=== PATIENT | male | born 1960 | race African-American/Black ===

== ENCOUNTER 2020-02-20 15:24 | Inpatient (IN) | payer OTHER ==
--- NOTE | 2020-02-20 15:36 | BHS.RME ---
Substance Use & Tx History - Substance Use History Heroin Substance amount: 2-3 bags Frequency of use: Daily Substance route: Inhalation (ex: sniffing or snorting) Date of Last Use: 02/20/20 Cocaine- Powder Substance amount: $20 Frequency of use: Daily Substance route: Inhalation (ex: sniffing or snorting) Date of Last Use: 02/20/20 Physical/Psych/Mental Status - Behavior General Behavior: Increased activity (restlessness, agitation) Eye Contact: Normal - Cooperativeness Cooperativeness: Cooperative - Thinking Thought Processes: Tight, Logical, Goal Directed Thought content: Future oriented - Physical Health Problems Is patient presently having any pain?: No Does patient presently have any injuries (include location): No Does patient currently have a fever: No Is patient : No COWS - Scale Resting Pulse: 0= [place] 80 or Below Sweatin= Chills/Flushing Restless Observation: 1= Difficult to Sit Still Pupil Size: 1= Pupils >than Normal Bone or Joint Aches: 0= None Runny Nose/ Eye Tearin= Nasal Congestion GI Upset > 30mins: 0= None Tremor Observation: 1= Tremor [place], Not Seen Yawning Observation: 0= None Anxiety or Irritability: 4=Extreme Anxiety Goose Flesh Skin: 3=Piloerection COWS Score: 12
--- NOTE | 2020-02-20 16:39 | HP ---
COWS - Scale Resting Pulse: 0= [place] 80 or Below Sweatin= Chills/Flushing Restless Observation: 1= Difficult to Sit Still Pupil Size: 1= Pupils >than Normal Bone or Joint Aches: 2= Severe Diffuse Aches Runny Nose/ Eye Tearin= Nasal Congestion GI Upset > 30mins: 1= Stomach Cramp Tremor Observation: 2= Slight Tremor Visible Yawning Observation: 0= None Anxiety or Irritability: 4=Extreme Anxiety Goose Flesh Skin: 3=Piloerection COWS Score: 16 CIWA Score - Admission Criteria [facility] Guidelines: Admission for Medically Managed Detox: Requires at least one of the followin. CIWA greater than 12 2. Seizures within the past 24 hours 3. Delirium tremens within the past 24 hours 4. Hallucinations within the past 24 hours 5. Acute intervention needed for co occurring medical disorder 6. Acute intervention needed for co occurring psychiatric disorder 7. Severe withdrawal that cannot be handled at a lower level of care (continued vomiting, continued diarrhea, abnormal vital signs) requiring intravenous medication and/or fluids 8. Admission ROS [facility] Chief Complaint: Seeking admission to detox from heroin Allergies/Adverse Reactions: Allergies Allergy/AdvReac Type Severity Reaction Status Date / Time No Known Allergies Allergy Verified 02/20/20 18:46 History of Present Illness: 59 years old male with 25 years of heroin dependence is seeking admission to detox. Patient's last admission to [facility] was for the period 12/04/2010- 01/01/2011. This is his first detoxification since 2010 and patient reports that he tried to stop by himself but was not successful. He reports 4-5 bags of heroin daily. He has medical history GERD, hemorrhoids, low back pain, bilateral hands arthritis and psych. history of paranoid schizo-affective, bipolar disorder, personality disorder and depression. He reports suicide attempt in 1987, 1988 when he got three 25 years to life sentences, he denies suicidal ideation at this time. He is unemployed on SSI, lives with mother and denies any pending legal issues. He reports blackouts and denies any history of overdose. Exam Limitations: No Limitations - Ebola screening Have you traveled outside of the country in the last 21 days: No Have you had contact with anyone from an Ebola affected area: No Have you been sick,other than usual withdrawal symptoms: No Do you have a fever: No - Review of Systems Constitutional: Chills, Loss of Appetite, Malaise, Night Sweats, Changes in sleep EENT: reports: Nose Congestion Respiratory: reports: No Symptoms reported Cardiac: reports: No Symptoms Reported GI: reports: Nausea, Poor Appetite, Poor Fluid Intake, Abdominal cramping : reports: No Symptoms Reported Musculoskeletal: reports: Joint Pain, Muscle Pain Integumentary: reports: Dryness, Flushing Endocrine: reports: No Symptoms Reported Hematology: reports: No Symptoms Reported Psychiatric: reports: Mood/Affect Appropiate, Orientated x3, Anxious Other Systems: Reviewed and Negative Patient History - Patient Medical History Hx Anemia: No Hx Asthma: No Hx Chronic Obstructive Pulmonary Disease (COPD): No Hx Cancer: No Hx Cardiac Disorders: No Hx Congestive Heart Failure: No Hx Hypertension: No Hx Hypercholesterolemia: No HX Cerebrovascular Accident: No Hx Seizures: No Hx Dementia: No Hx Diabetes: No Hx Gastrointestinal Disorders: Yes (GERD, Hemorrhoids) Hx Liver Disease: No Hx Genitourinary Disorders: No Hx Sexually Transmitted Disorders: No Hx Renal Disease (ESRD): No Hx Thyroid Disease: No Hx Human Immunodeficiency Virus (HIV): No (Negative 2020) Hx Hepatitis C: No Hx Depression: Yes (Not on medication) Hx Suicide Attempt: Yes (Suicide attempt in 1987 and 1988. Denies suicidal ideaton at thi time ) Hx Bipolar Disorder: Yes (Not on medication) Hx Schizophrenia: Yes (Not on medication) Other Medical History: Bilateral hands arthritis, low back pain - Patient Surgical History Past Surgical History: Yes Hx Neurologic Surgery: No Hx Cataract Extraction: No Hx Cardiac Surgery: No Hx Lung Surgery: No Hx Abdominal Surgery: No Hx Appendectomy: Yes Hx Cholecystectomy: No Hx Genitourinary Surgery: No Hx Orthopedic Surgery: Yes (LEFT SMALL TOE SURGERY 2013) Other Surgical History: HERNIA REPAIR 2010, HEMORRHOIDECTOMY 2004 - PPD History Previous Implant?: Yes (PPD POSITIVE> TREATED FOR 6 MONTHS) Documented Results: Positive w/o proof Implanted On Prior R Admission?: No PPD to be Administered?: No - Reproductive History Patient is a Female of Child Bearing Age (11 -55 yrs old): No (MALE) - Smoking Cessation Smoking history: Current every day smoker Have you smoked in the past 12 months: Yes Aproximately how many cigarettes per day: 10 Hx Chewing Tobacco Use: No Initiated information on smoking cessation: Yes 'Breaking Loose' booklet given: 02/20/20 - Substance & Tx. History Hx Alcohol Use: No Hx Substance Use: Yes Hx Substance Use Treatment: Yes ([facility] 2010) - Substances abused Heroin Substance route: Inhalation Frequency: Daily Amount used: 4-5 BAGS Age of first use: 34 Date of last use: 02/20/20 Admission Physical Exam [facility] - Physical General Appearance: Yes: Moderate Distress, Tremorous, Sweating, Anxious HEENTM: Yes: Within Normal Limits Respiratory: Yes: Lungs Clear, Normal Breath Sounds, No Respiratory Distress Neck: Yes: Within Normal Limits Breast: Yes: Breast Exam Deferred Cardiology: Yes: Regular Rhythm, Regular Rate Abdominal: Yes: Normal Bowel Sounds, Soft Genitourinary: Yes: Within Normal Limits Back: Yes: Normal Inspection Musculoskeletal: Yes: Back pain, Muscle Pain Extremities: Yes: Tremors Neurological: Yes: Within Normal Limits Integumentary: Yes: Within Normal Limits Lymphatic: Yes: Within Normal Limits - Diagnostic (1) Opioid dependence with withdrawal Current Visit: Yes Status: Acute (2) Nicotine dependence Current Visit: Yes Status: Chronic Qualifiers: Nicotine product type: cigarettes Substance use status: uncomplicated Qualified Code(s): F17.210 - Nicotine dependence, cigarettes, uncomplicated (3) GERD (gastroesophageal reflux disease) Current Visit: Yes Status: Chronic Qualifiers: Esophagitis presence: esophagitis presence not specified Qualified Code(s): K21.9 - Gastro-esophageal reflux disease without esophagitis (4) Arthritis of both hands Current Visit: Yes Status: Chronic (5) Low back pain Current Visit: Yes Status: Chronic Qualifiers: Chronicity: chronic Back pain laterality: midline (6) Hemorrhoids Current Visit: Yes Status: Chronic Qualifiers: Hemorrhoid type: unspecified Qualified Code(s): K64.9 - Unspecified hemorrhoids (7) Paranoid schizophrenia Current Visit: Yes Status: Chronic (8) Bipolar disorder Current Visit: Yes Status: Chronic Qualifiers: Active/Remission status: remission status unspecified Qualified Code(s): F31.9 - Bipolar disorder, unspecified (9) Personality disorder Current Visit: Yes Status: Chronic Cleared for Admission [facility] - Detox or Rehab [facility] Level of Care: Medically Managed Detox Regimen/Protocol: Methadone Claeared for Rehab Admission: No Inpatient Rehab Admission - Rehab Decision to Admit Inpatient rehab admission?: No
[2020-02-20 16:47] VITALS: BMI 25.4
[2020-02-20] MEDS ORDERED: MAGNESIUM CITRATE 300 ML BOTTLE PO PRN (17:14)
[2020-02-20] MEDS ORDERED: ONDANSETRON *ODT* 4 MG TABLET SL ONE (17:14)
[2020-02-20] MEDS ORDERED: MENTHOL/PHENOL 1 EACH UD MM PRN (17:14)
[2020-02-20] MEDS ORDERED: NICOTINE POLACRILEX 2 MG GUM BUC PRN (17:14)
[2020-02-20] MEDS ORDERED: ACETAMINOPHEN 325 MG TABLET (FP) PO PRN ×2 (17:14)
[2020-02-20] MEDS ORDERED: IBUPROFEN 400 MG TABLET (FP) PO PRN (17:14)
[2020-02-20] MEDS ORDERED: MAG HYDROX/AL HYDROX/SIMETH 30 ML UNIT-DOSE CUP PO PRN (17:14)
[2020-02-20] MEDS ORDERED: MAGNESIUM HYDROX 2400MG/30ML ORAL SUSPENSION 30 ML CUP PO PRN (17:14)
[2020-02-20] MEDS ORDERED: BISMUTH SUBSALICYLATE 524 MG/30 ML UD PO PRN (17:14)
[2020-02-20] MEDS ORDERED: METHADONE HCL 10 MG TABLET (FOR DETOX USE ONLY) PO ONE (17:17)
[2020-02-20] MEDS ORDERED: MELATONIN 5 MG TABLETS PO SCH (22:00)
[2020-02-20] MEDS: THIAMINE HCL 100 MG TABLET (FP) PO SCH (23:11)
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
[2020-02-21] MEDS ORDERED: MELATONIN 5 MG TABLETS PO PRN (08:35)
[2020-02-21] MEDS ORDERED: METHADONE HCL 5 MG TABLET (FOR DETOX USE ONLY) PO ONE (10:00)
[2020-02-21] MEDS: NICOTINE 14 MG/24 HOURS TOPICAL PATCH TD SCH (10:10)
[2020-02-21] MEDS: PRENATAL VITAMINS W/ FOLIC ACID TABLET (FP) PO SCH (10:11)
--- NOTE | 2020-02-21 10:29 | EKG ---
Test Reason : Blood Pressure : / mmHG Vent. Rate : 063 BPM Atrial Rate : 063 BPM P-R Int : 120 ms QRS Dur : 086 ms QT Int : 420 ms P-R-T Axes : 072 053 033 degrees QTc Int : 429 ms NORMAL SINUS RHYTHM WITH SINUS ARRHYTHMIA POSSIBLE LEFT ATRIAL ENLARGEMENT BORDERLINE ECG WHEN COMPARED WITH ECG OF 16-SEP-2017 08:25, NONSPECIFIC T WAVE ABNORMALITY NOW EVIDENT IN ANTERIOR LEADS Confirmed by MD Erasto, Federico ([id number]) on 02/21/2020 10:28:36 AM Referred By: Confirmed By:Federico Maurer MD
[2020-02-21 10:44] LABS: HEMATOCRIT 39.3 % (35.4-49); HEMOGLOBIN 12.9 GM/dL (11.7-16.9); MCH 28.3 pg (25.7-33.7); MCHC 32.9 g/dl (32.0-35.9); MEAN CELL VOLUME 85.9 fl (80-96); MEAN PLT VOLUME 8.3 fl (7.5-11.1); PLATELET COUNT 213 K/MM3 (134-434); RBC 4.58 M/mm3 (4.00-5.60); RDW 14.5 % (11.9-15.9); WHITE BLOOD COUNT 4.2 K/mm3 (4.0-10.0)
[2020-02-21 10:46] LABS: ALBUMIN 3.2 g/dl (3.4-5.0); BILIRUBIN,TOTAL 0.7 mg/dL (0.2-1); BLOOD UREA NITROGEN 12.6 mg/dL (7-18); CREATININE 0.9 mg/dL (0.55-1.3); POTASSIUM 4.5 mmol/L (3.5-5.1)
--- NOTE | 2020-02-21 11:32 | PN ---
S COWS - Scale Resting Pulse: 0= [place] 80 or Below Sweatin= Beads of Sweat on Face Restless Observation: 1= Difficult to Sit Still Pupil Size: 0= Normal to Room Light Bone or Joint Aches: 2= Severe Diffuse Aches Runny Nose/ Eye Tearin= None GI Upset > 30mins: 0= None Tremor Observation of Outstretched Hands: 2= Slight Tremor Visible Yawning Observation: 1= 1-2x During Session Anxiety or Irritability: 2=Irritable/Anxious Goose Flesh Skin: 0=Smooth Skin COWS Score: 11 [facility] Progress Note (SOAP) Subjective: c/o sweats, anxiety, muscle aches, and shakes. Objective: 02/21/20 11:31 Vital Signs 02/21/20 02/21/20 07:15 08:51 Temperature 97.5 F L 98.1 F Pulse Rate 64 64 Respiratory 18 16 Rate Blood Pressure 117/63 111/59 L O2 Sat by Pulse 96 Oximetry (%) Laboratory Last Values WBC 4.2 K/mm3 (4.0-10.0) 02/21/20 08:10 RBC 4.58 M/mm3 (4.00-5.60) 02/21/20 08:10 Hgb 12.9 GM/dL (11.7-16.9) 02/21/20 08:10 Hct 39.3 % (35.4-49) 02/21/20 08:10 MCV 85.9 fl (80-96) 02/21/20 08:10 MCH 28.3 pg (25.7-33.7) 02/21/20 08:10 MCHC 32.9 g/dl (32.0-35.9) 02/21/20 08:10 RDW 14.5 % (11.9-15.9) 02/21/20 08:10 Plt Count 213 K/MM3 (134-434) 02/21/20 08:10 MPV 8.3 fl (7.5-11.1) 02/21/20 08:10 Sodium 142 mmol/L (136-145) 02/21/20 08:10 Potassium 4.5 mmol/L (3.5-5.1) 02/21/20 08:10 Chloride 106 mmol/L (98-107) 02/21/20 08:10 Carbon Dioxide 31 mmol/L (21-32) 02/21/20 08:10 Anion Gap 5 MMOL/L (8-16) L 02/21/20 08:10 BUN 12.6 mg/dL (7-18) 02/21/20 08:10 Creatinine 0.9 mg/dL (0.55-1.3) 02/21/20 08:10 Est GFR (CKD-EPI)AfAm 108.73 02/21/20 08:10 Est GFR (CKD-EPI)NonAf 93.82 02/21/20 08:10 Random Glucose 98 mg/dL (74-106) 02/21/20 08:10 Calcium 9.0 mg/dL (8.5-10.1) 02/21/20 08:10 Total Bilirubin 0.7 mg/dL (0.2-1) 02/21/20 08:10 AST 19 U/L (15-37) 02/21/20 08:10 ALT 25 U/L (13-61) 02/21/20 08:10 Alkaline Phosphatase 78 U/L (45-117) 02/21/20 08:10 Total Protein 6.0 g/dl (6.4-8.2) L 02/21/20 08:10 Albumin 3.2 g/dl (3.4-5.0) L 02/21/20 08:10 Syphilis Serology Non-reactive (NONREACTIVE) 02/21/20 08:10 Labs noted. Assessment: 02/21/20 11:32 AOX3, in no acute respiratory distress. Full ROM, ambulating in the unit. Withdrawal symptoms. Plan: continue detox.
[2020-02-21] MEDS: cloNIDine HCL 0.1 MG TABLET PO PRN ×2 (14:12→20:33)
[2020-02-21] MEDS: METHOCARBAMOL 500 MG TABLET PO PRN ×2 (14:12→20:33)
[2020-02-21] MEDS: hydrOXYzine PAMOATE 25 MG CAPSULE (FP) PO PRN (20:33)
[2020-02-21] MEDS: THIAMINE HCL 100 MG TABLET (FP) PO SCH (22:15)
[2020-02-22] MEDS: hydrOXYzine PAMOATE 25 MG CAPSULE (FP) PO PRN ×2 (01:48→15:30)
[2020-02-22] MEDS: METHOCARBAMOL 500 MG TABLET PO PRN ×2 (03:52→15:30)
[2020-02-22] MEDS ORDERED: METHADONE HCL 10 MG TABLET (FOR DETOX USE ONLY) PO ONE (10:00)
[2020-02-22] MEDS: PRENATAL VITAMINS W/ FOLIC ACID TABLET (FP) PO SCH (10:10)
[2020-02-22] MEDS: NICOTINE 14 MG/24 HOURS TOPICAL PATCH TD SCH (10:10)
--- NOTE | 2020-02-22 10:52 | PN ---
S COWS - Scale Resting Pulse: 0= [place] 80 or Below Sweatin= No chills or Flushing Restless Observation: 0= Sits Still Pupil Size: 0= Normal to Room Light Bone or Joint Aches: 2= Severe Diffuse Aches Runny Nose/ Eye Tearin= None GI Upset > 30mins: 0= None Tremor Observation of Outstretched Hands: 0= None Yawning Observation: 1= 1-2x During Session Anxiety or Irritability: 2=Irritable/Anxious Goose Flesh Skin: 0=Smooth Skin COWS Score: 5 S Progress Note (SOAP) Subjective: c/o mild withdrawal symptoms. Objective: 02/22/20 10:48 Vital Signs 02/22/20 05:36 Temperature 97.2 F L Pulse Rate 59 L Respiratory 18 Rate Blood Pressure 126/75 O2 Sat by Pulse 98 Oximetry (%) Laboratory Last Values WBC 4.2 K/mm3 (4.0-10.0) 02/21/20 08:10 RBC 4.58 M/mm3 (4.00-5.60) 02/21/20 08:10 Hgb 12.9 GM/dL (11.7-16.9) 02/21/20 08:10 Hct 39.3 % (35.4-49) 02/21/20 08:10 MCV 85.9 fl (80-96) 02/21/20 08:10 MCH 28.3 pg (25.7-33.7) 02/21/20 08:10 MCHC 32.9 g/dl (32.0-35.9) 02/21/20 08:10 RDW 14.5 % (11.9-15.9) 02/21/20 08:10 Plt Count 213 K/MM3 (134-434) 02/21/20 08:10 MPV 8.3 fl (7.5-11.1) 02/21/20 08:10 Sodium 142 mmol/L (136-145) 02/21/20 08:10 Potassium 4.5 mmol/L (3.5-5.1) 02/21/20 08:10 Chloride 106 mmol/L (98-107) 02/21/20 08:10 Carbon Dioxide 31 mmol/L (21-32) 02/21/20 08:10 Anion Gap 5 MMOL/L (8-16) L 02/21/20 08:10 BUN 12.6 mg/dL (7-18) 02/21/20 08:10 Creatinine 0.9 mg/dL (0.55-1.3) 02/21/20 08:10 Est GFR (CKD-EPI)AfAm 108.73 02/21/20 08:10 Est GFR (CKD-EPI)NonAf 93.82 02/21/20 08:10 Random Glucose 98 mg/dL (74-106) 02/21/20 08:10 Calcium 9.0 mg/dL (8.5-10.1) 02/21/20 08:10 Total Bilirubin 0.7 mg/dL (0.2-1) 02/21/20 08:10 AST 19 U/L (15-37) 02/21/20 08:10 ALT 25 U/L (13-61) 02/21/20 08:10 Alkaline Phosphatase 78 U/L (45-117) 02/21/20 08:10 Total Protein 6.0 g/dl (6.4-8.2) L 02/21/20 08:10 Albumin 3.2 g/dl (3.4-5.0) L 02/21/20 08:10 Syphilis Serology Non-reactive (NONREACTIVE) 02/21/20 08:10 COVID-19 (DAEN) Not detected (Not Detected) 02/20/20 19:00 Labs noted. Assessment: AOX3, in no acute respiratory distress. Full ROM, ambulating in the unit. Mild Withdrawal symptoms. For d/c tomorrow. Plan: continue detox. D/C in AM.
[2020-02-22 13:05] VITALS: TEMP 97.3
--- NOTE | 2020-02-22 16:56 | DS ---
[facility] Detox Discharge Summary Admission Date: 02/20/20 Discharge Date: 02/22/20 - History Additional Comments: Patient is scheduled for discharge tomorrow at 8AM but he wants to leave today to enable him get up early for a meeting. He is medically stable to go home today. He was detoxed safely and he responded well to therapy. He is alert and oriented x 3, ambulates independently, not in acute distress and vital signs stable. Discharge and instructions was done in 30 minutes. Pertinent Past History: Opioid dependence GERD Hemorrhoids Bipolar disorder Low back pain Nicotine dependence Paranoid schizophrenia Personality disorder - Physical Exam Results Vital Signs: Vital Signs Temperature 97.3 F L 02/22/20 12:42 Pulse Rate 61 02/22/20 12:42 Respiratory Rate 18 02/22/20 12:42 Blood Pressure 123/71 02/22/20 12:42 O2 Sat by Pulse Oximetry (%) 98 02/22/20 12:42 Laboratory Last Values WBC 4.2 K/mm3 (4.0-10.0) 02/21/20 08:10 RBC 4.58 M/mm3 (4.00-5.60) 02/21/20 08:10 Hgb 12.9 GM/dL (11.7-16.9) 02/21/20 08:10 Hct 39.3 % (35.4-49) 02/21/20 08:10 MCV 85.9 fl (80-96) 02/21/20 08:10 MCH 28.3 pg (25.7-33.7) 02/21/20 08:10 MCHC 32.9 g/dl (32.0-35.9) 02/21/20 08:10 RDW 14.5 % (11.9-15.9) 02/21/20 08:10 Plt Count 213 K/MM3 (134-434) 02/21/20 08:10 MPV 8.3 fl (7.5-11.1) 02/21/20 08:10 Sodium 142 mmol/L (136-145) 02/21/20 08:10 Potassium 4.5 mmol/L (3.5-5.1) 02/21/20 08:10 Chloride 106 mmol/L (98-107) 02/21/20 08:10 Carbon Dioxide 31 mmol/L (21-32) 02/21/20 08:10 Anion Gap 5 MMOL/L (8-16) L 02/21/20 08:10 BUN 12.6 mg/dL (7-18) 02/21/20 08:10 Creatinine 0.9 mg/dL (0.55-1.3) 02/21/20 08:10 Est GFR (CKD-EPI)AfAm 108.73 02/21/20 08:10 Est GFR (CKD-EPI)NonAf 93.82 02/21/20 08:10 Random Glucose 98 mg/dL (74-106) 02/21/20 08:10 Calcium 9.0 mg/dL (8.5-10.1) 02/21/20 08:10 Total Bilirubin 0.7 mg/dL (0.2-1) 02/21/20 08:10 AST 19 U/L (15-37) 02/21/20 08:10 ALT 25 U/L (13-61) 02/21/20 08:10 Alkaline Phosphatase 78 U/L (45-117) 02/21/20 08:10 Total Protein 6.0 g/dl (6.4-8.2) L 02/21/20 08:10 Albumin 3.2 g/dl (3.4-5.0) L 02/21/20 08:10 Syphilis Serology Non-reactive (NONREACTIVE) 02/21/20 08:10 COVID-19 (DEAN) Not detected (Not Detected) 02/20/20 19:00 Labs reviewed Pertinent Admission Physical Exam Findings: Opioid withdrawal symptoms - Treatment Hospital Course: Detox Protocol Followed, Detoxed Safely, Responded well, Discharged Condition Good - Medication Discharge Medications: Ambulatory Orders NK [No Known Home Medication] 02/20/20 - Diagnosis (1) Opioid dependence with withdrawal Status: Acute (2) Nicotine dependence Status: Chronic Qualifiers: Nicotine product type: cigarettes Substance use status: uncomplicated Qualified Code(s): F17.210 - Nicotine dependence, cigarettes, uncomplicated (3) GERD (gastroesophageal reflux disease) Status: Chronic Qualifiers: Esophagitis presence: esophagitis presence not specified Qualified Code(s): K21.9 - Gastro-esophageal reflux disease without esophagitis (4) Arthritis of both hands Status: Chronic (5) Low back pain Status: Chronic Qualifiers: Chronicity: chronic Back pain laterality: midline (6) Hemorrhoids Status: Chronic Qualifiers: Hemorrhoid type: unspecified Qualified Code(s): K64.9 - Unspecified hemorrhoids (7) Paranoid schizophrenia Status: Chronic (8) Bipolar disorder Status: Chronic Qualifiers: Active/Remission status: remission status unspecified Qualified Code(s): F31.9 - Bipolar disorder, unspecified (9) Personality disorder Status: Chronic - AMA Did Patient Leave Against Medical Advice: No
[2020-02-22 17:07] VITALS: BP 124/68; PULSE 62
[2020-02-23] MEDS ORDERED: METHADONE HCL 5 MG TABLET (FOR DETOX USE ONLY) PO ONE (06:00)
== END 2020-02-22 17:25 | disposition home or self-care (01) | DRG 773 ==
LOC: YASAS 15:24 → Y6N 17:11
PROVIDERS: ADMIT Allergy & Immunology; ATTEND Allergy & Immunology
PROC: HZ2ZZZZ Detoxification Services for Substance Abuse Treatment (ICD-10-PCS; principal; 2020-02-20)
DX: F11.23 Opioid dependence with withdrawal (principal); F14.20 Cocaine dependence, uncomplicated; F17.210 Nicotine dependence, cigarettes, uncomplicated; F19.282 Other psychoactive substance dependence with psychoactive substance-induced sleep disorder; F19.24 Other psychoactive substance dependence with psychoactive substance-induced mood disorder; F31.9 Bipolar disorder, unspecified; F20.0 Paranoid schizophrenia; F60.9 Personality disorder, unspecified; K21.9 Gastro-esophageal reflux disease without esophagitis; K64.9 Unspecified hemorrhoids; M54.5 Low back pain; M19.042 Primary osteoarthritis, left hand; M19.041 Primary osteoarthritis, right hand; R76.11 Nonspecific reaction to tuberculin skin test without active tuberculosis; Z56.0 Unemployment, unspecified; Z91.5 Personal history of self-harm; Z98.890 Other specified postprocedural states
CPT/HCPCS: 36415; 71046-TC-FY; 80053; 85027; 86780; 93005; 93010; J0735; Q0162; U0003